=== PATIENT | male | born 1990 | race Caucasian/White ===

== ENCOUNTER 2020-10-06 12:21 | Emergency (ER) | payer MEDICAID ==
[~2020-10-06] VITALS: Ht 182.9 cm; Wt 86.7 kg
[2020-10-06 12:31] VITALS: BP 135/93; TEMP 98.6
[2020-10-06 15:10] VITALS: PULSE 78
== END 2020-10-06 15:10 | disposition home or self-care (01) ==
LOC: COL.ER 12:21
DX: R07.89 Other chest pain (principal); Z20.822 Contact with and (suspected) exposure to COVID-19; Z88.0 Allergy status to penicillin